=== PATIENT | male | born 1970 | race Caucasian/White ===

== ENCOUNTER 2016-09-14 19:41 | Emergency (ER) | payer OTHER ==
[~2016-09-14 19:41] MED LIST: ALEVE220 MG PO; ANTIVERT25 M1 PO; ASPIRIN81 M1 PO; ASPIRIN81 MG PO; AUGMENTIN875 MG/TA1 PO; AZILECT1 M1 PO; CARAFATE1 GM/10 M1 PO; CARBIDOPA-LEVO1 EAC8 PO; CARBIDOPA-LEVODOPA PO; CYMBALTA30 MG; EPIDRIN CAPSULE1 CAP; FAMOTIDINE20 M3 PO; FENOFIBRATE PO; FIORICET TABLET1 TAB PO; FLEXERIL10 MG; FLEXERIL10 MG PO; FLOMAX0.4 MG PO; IBUPROFEN200 M2 PO; IBUPROPHEN; KEFLEX500 MG PO; MIRAPEX0.25 M1 PO; MOTRIN800 MG PO; NAPROSYN500 M1 PO; NO HOME MEDS; NO MEDICATIONS; NORCO 5-325 TA1 EACH PO; NORCO 5/325 TAB1 TAB PO; PENICILLIN V P500 M1 PO; PEPCID20 MG PO; SEROQUEL XR50 MG/TAB PO; ULTRAM50 MG PO; XARELTO15 M1 PO; ZOFRAN ODT4 MG/UDTAB PO
[2016-09-14] MEDS ORDERED: COMTAN200 M1 PO (20:05)
[2016-09-14] MEDS ORDERED: IBUPROFEN800 M1 PO (20:07)
[2016-09-14] MEDS ORDERED: PENICILLIN V P500 M1 PO (20:17)
[2016-09-14] MEDS ORDERED: NORCO 5-325 TA1 EACH PO (20:17)
[2016-09-15] MEDS ORDERED: PERCOCET 10-321 EACH PO ×2 (10:10→19:51)
[2016-09-15] MEDS ORDERED: PENICILLIN V P500 M1 PO (19:52)
[2017-02-13] MEDS ORDERED: CARBIDOPA-LEVO1 EA11 PO (14:37)
[2017-02-13] MEDS ORDERED: LOVENOX40 MG/0.1 SC (16:25)
[2017-02-13] MEDS ORDERED: IBUPROFEN600 M1 PO (16:26)
== END 2016-09-14 20:59 ==
LOC: EDMED 19:41
DX: K04.7 Periapical abscess without sinus (principal); G20 Parkinson's disease; Z79.899 Other long term (current) drug therapy

== ENCOUNTER 2016-09-15 10:17 | Emergency (ER) | payer OTHER ==
[~2016-09-15 10:17] MED LIST changes: +COMTAN200 M1 PO; +IBUPROFEN800 M1 PO; +PERCOCET 10-321 EACH PO
[2016-09-15] MEDS ORDERED: PERCOCET 10-321 EACH PO (19:51)
[2016-09-15] MEDS ORDERED: PENICILLIN V P500 M1 PO (19:52)
[2017-02-13] MEDS ORDERED: CARBIDOPA-LEVO1 EA11 PO (14:37)
[2017-02-13] MEDS ORDERED: LOVENOX40 MG/0.1 SC (16:25)
[2017-02-13] MEDS ORDERED: IBUPROFEN600 M1 PO (16:26)
== END 2016-09-15 10:25 ==
LOC: EDMED 10:17
PROC: 3E0T3CZ (ICD-10-PCS; principal; 2016-09-15)
DX: K02.9 Dental caries, unspecified (principal)

== ENCOUNTER 2016-09-15 18:30 | Emergency (ER) | payer OTHER ==
[2016-09-15] MEDS ORDERED: PERCOCET 10-321 EACH PO (19:51)
[2016-09-15] MEDS ORDERED: PENICILLIN V P500 M1 PO (19:52)
[2017-02-13] MEDS ORDERED: CARBIDOPA-LEVO1 EA11 PO (14:37)
[2017-02-13] MEDS ORDERED: LOVENOX40 MG/0.1 SC (16:25)
[2017-02-13] MEDS ORDERED: IBUPROFEN600 M1 PO (16:26)
== END 2016-09-15 20:25 ==
LOC: EDMED 18:30
DX: K02.9 Dental caries, unspecified (principal)